=== PATIENT | female | born 1985 | race Caucasian/White ===

== ENCOUNTER 2017-11-19 10:27 | Emergency (ER) | payer MEDICAID ==
[2017-11-19] MEDS: IBUPROFEN 600 MG TAB PO (11:49)
== END 2017-11-19 12:12 | disposition home or self-care (01) ==
LOC: FTE 10:27
DX: M54.2 Cervicalgia (principal)
CPT/HCPCS: 72040; 99283-25

== ENCOUNTER 2017-11-24 22:56 | Emergency (ER) | payer MEDICAID | END 2017-11-25 03:05 | disposition home or self-care (01) | LOC: FTE 22:56 | DX: R07.89 Other chest pain (principal) | CPT/HCPCS: 71045; 99284-25 ==

== ENCOUNTER 2019-02-08 18:25 | Emergency (ER) | payer MEDICAID ==
[2019-02-08] MEDS: ACETAMINOPHEN 325 MG TAB PO (19:32)
[2019-02-08] MEDS: FAMOTIDINE 20 MG TAB PO (19:32)
[2019-02-08 19:42] LABS: ADD UMIC NO; UR ASCORBIC ACID NEGATIVE (NEGATIVE); UR BACTERIA FEW /HPF (NONE SEEN); UR BILIRUBIN (Dip) NEGATIVE (NEGATIVE); UR BLOOD (Dip) NEGATIVE (NEGATIVE); UR CLARITY SLIGHTLY CLOUDY (CLEAR); UR COLOR YELLOW (YELLOW); UR GLUCOSE (Dip) NEGATIVE (NEGATIVE); UR KETONES (Dip) NEGATIVE (NEGATIVE); UR LEUKOCYTE ESTERASE (Dip) NEGATIVE Leu/ul (NEGATIVE); UR NITRITE (Dip) NEGATIVE (NEGATIVE); UR RBC 0 /HPF (0-5); UR SPECIFIC GRAVITY (Dip) 1.012 (1.003-1.030); UR SQUAMOUS EPITHELIAL CELL FEW /HPF (FEW); UR TOTAL PROTEIN (Dip) NEGATIVE (NEGATIVE); UR UROBILINOGEN (Dip) NEGATIVE (NEGATIVE); UR WBC 1 /HPF (0-5)
== END 2019-02-08 21:29 | disposition home or self-care (01) ==
LOC: FTE 18:25
DX: O26.891 Other specified pregnancy related conditions, first trimester (principal); R10.12 Left upper quadrant pain
CPT/HCPCS: 36415; 76801; 76817; 81001; 81003; 99284-25